=== PATIENT | male | born 1960 | race Two or more races ===

== ENCOUNTER 2022-09-19 07:18 | Outpatient (REF) | payer OTHER, SELFPAY ==
[2022-09-19 07:40] LABS: MANUAL DIFF FLAG NO
[2022-09-19 08:08] LABS: Basophils Percent Auto 0.6 % (0-2); Eosinophils Absolute Auto 0.3 X10*3/uL (0.0-0.4); Eosinophils Percent Auto 3.8 % (0-4); Hematocrit 44.8 % (42.0-52.0); Hemoglobin 15.1 g/dl (14.0-18.0); Imm Gran Abs Auto 0.02 X10*3/uL (0.00-0.03); Imm Gran Pct Auto 0.3 % (0.0-0.4); Lymphocytes Absolute Auto 1.8 X10*3/uL (1.2-4.9); Lymphocytes Percent Auto 24.8 % (20-40); Mean Corpuscular HGB Conc 33.7 g/dl (31.0-36.0); Mean Corpuscular Hemoglobin 29.4 pg (27.0-33.0); Mean Corpuscular Volume 87.3 fL (80.0-98.0); Mean Platelet Volume 10.4 fL (9.4-12.4); Monocytes Absolute Auto 0.5 X10*3/uL (0.1-1.2); Monocytes Percent Auto 7.2 % (2-11); Neutrophils Absolute Auto 4.5 x10*3/uL (2.0-8.3); Neutrophils Percent Auto 63.3 % (45-73); Platelet Count 221 X10*3/uL (160-400); Red Blood Count 5.13 X10*6/uL (4.60-5.80); Red Cell Distribution Width 12.2 % (11.0-16.0); White Blood Count 7.1 X10*3/uL (4.8-10.8)
[2022-09-19 08:43] LABS: Alanine Aminotransferase 23 U/L (0-40); Albumin Level 4.3 g/dL (3.5-5.0); Alkaline Phosphatase 67 U/L (39-117); Anion Gap 14 (12-20); Aspartate Amino Transferase 19 U/L (5-37); Bilirubin Total 1.2 mg/dL (0.0-1.0); Blood Urea Nitrogen 14 mg/dL (9-16); Calcium 9.2 mg/dL (8.4-10.2); Carbon Dioxide 28 mmol/L (22-29); Chloride 106 mmol/L (96-108); Cholesterol 166 mg/dL; Estimated Glomerular Filt Rate > 60; Glucose Fasting 105 mg/dL (60-99); HDL Cholesterol 31 mg/dL; LDL Cholesterol Calculated 90 mg/dl; Potassium 4.5 mmol/L (3.3-5.1); Sodium 143 mmol/L (135-145); Total Protein 6.4 g/dL (6.5-8.0); Triglycerides 226 mg/dL
[2022-09-19 08:49] LABS: PSA,Total (Free>4and<10) 2.94 ng/mL (0.00-4.00)
== END 2022-09-19 07:19 | disposition home or self-care (01) ==
LOC: HO.LAB 07:18
PROVIDERS: PCP Internal Medicine; Visit Provider Internal Medicine
DX: Z00.00 Encounter for general adult medical examination without abnormal findings (principal); Z12.5 Encounter for screening for malignant neoplasm of prostate
CPT/HCPCS: 36415; 80053; 80061; 84153; 85025

== ENCOUNTER 2023-05-22 07:13 | Outpatient (REF) | payer OTHER, SELFPAY ==
[2023-05-22 07:35] LABS: MANUAL DIFF FLAG NO
[2023-05-22 07:40] LABS: Basophils Percent Auto 0.4 % (0-2); Eosinophils Absolute Auto 0.2 X10*3/uL (0.0-0.4); Eosinophils Percent Auto 3.5 % (0-4); Hemoglobin 15.1 g/dl (14.0-18.0); Imm Gran Abs Auto 0.04 X10*3/uL (0.00-0.03); Imm Gran Pct Auto 0.6 % (0.0-0.4); Lymphocytes Absolute Auto 1.6 X10*3/uL (1.2-4.9); Lymphocytes Percent Auto 23.7 % (20-40); Mean Corpuscular HGB Conc 34.3 g/dl (31.0-36.0); Mean Corpuscular Hemoglobin 29.8 pg (27.0-33.0); Mean Platelet Volume 9.9 fL (9.4-12.4); Monocytes Absolute Auto 0.7 X10*3/uL (0.1-1.2); Monocytes Percent Auto 9.7 % (2-11); Neutrophils Absolute Auto 4.3 x10*3/uL (2.0-8.3); Neutrophils Percent Auto 62.1 % (45-73); Platelet Count 228 X10*3/uL (160-400); Red Blood Count 5.06 X10*6/uL (4.60-5.80); Red Cell Distribution Width 12.7 % (11.0-16.0); White Blood Count 6.9 X10*3/uL (4.8-10.8)
[2023-05-22 08:32] LABS: Alanine Aminotransferase 27 U/L (0-40); Albumin Level 4.3 g/dL (3.5-5.0); Alkaline Phosphatase 73 U/L (39-117); Anion Gap 14 (12-20); Aspartate Amino Transferase 21 U/L (5-37); Blood Urea Nitrogen 17 mg/dL (9-16); Calcium 9.5 mg/dL (8.4-10.2); Carbon Dioxide 25 mmol/L (22-29); Chloride 105 mmol/L (96-108); Cholesterol 173 mg/dL (<200); Estimated Glomerular Filt Rate > 60; Glucose Random 95 mg/dL (60-115); HDL Cholesterol 33 mg/dL (>40); LDL Cholesterol Calculated 95 mg/dL (<100); Potassium 4.1 mmol/L (3.3-5.1); Sodium 140 mmol/L (135-145); Triglycerides 225 mg/dL (<150)
[2023-05-22 08:40] LABS: Thyroid Stimulating Hormone 0.85 uIU/mL (0.32-4.0)
[2023-05-22 08:48] LABS: Vitamin B12 354 pg/mL (200-900)
== END 2023-05-22 07:14 | disposition home or self-care (01) ==
LOC: HO.LAB 07:13
PROVIDERS: PCP Internal Medicine; Visit Provider Internal Medicine
DX: R53.83 Other fatigue (principal); E78.00 Pure hypercholesterolemia, unspecified
CPT/HCPCS: 36415; 80053; 80061; 82607; 84443; 85025

== ENCOUNTER 2023-09-22 09:48 | Outpatient (AMB) | payer OTHER, SELFPAY ==
[2023-09-22 09:53] VITALS: BP 140/70; PULSE 68; O2SAT 95; BMI 33.4
--- NOTE | 2023-09-22 09:53 | A.OFFVIS_ITS ---
Intake Vital Signs 09/22/23 09:53 Height 5 ft 8 in Weight 220 lb BMI 33.4 BP 140/70 H Blood Pressure Location Lt brachial Position Sitting Pulse 68 Pulse Source Pulse Oximeter Pulse Oximetry (%) 95 Oxygen Delivery Method Room Air Intake Visit Reasons: Fatigue Intake Note: pt is here for a work up of ANNE-MARIE, he states he is fatigued during the day, sno res, witnessed apneas. family hx of 4 brothers of ANNE-MARIE and on cpap. 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 animal dander Allergy (Unknown, Uncoded 09/22/23 11:59) Difficulty Breathing animal hair (dog) Allergy (Unknown, Uncoded 09/22/23 11:59) Difficulty Breathing Medication List - Last Reconciled 09/22/23 by Dashawn Ghosh MD atorvastatin 10 mg PO BEDTIME Do you need a note to return to daycare/school/sports/work: No HPI Fatigue HPI Details This 63 years old, gentleman, a retired stenographic court reporter, is being seen for the 1st time, because of his difficulty in sleeping at night and excessive daytime sleepiness/fatigue. He has been experiencing these symptoms for the last. 7-10 years He did put on about 10 lb of weight during the past. 5 years He snores heavy at night, wakes up during the night with dry mouth and sometime gasping like feeling. He remains somewhat tired during the whole day, When he wakes up in the morning he does not feel refreshed. He has an urge to fall asleep, if he is just sitting and not physically active. Or if he is watching. TV or reading a book In the afternoon almost on a daily basis he has a deep urge to take a nap. EPWORTH SLEEPINESS SCALE IS 14. FAMILY HISTORY IS INTERESTING. His 4 brothers are diagnosed to have sleep apnea and use CPAP. His 1 nephew , sister,s son also uses CPAP. He has no other significant problems except for borderline hypertension and also hyperlipidemia which is being treated with med. ON LICENSE OF [facility] Medical History (Updated 09/22/23 @ 12:07 by Dashawn Ghosh MD) ANNE-MARIE (obstructive sleep apnea) Habitual snoring Somnolence, daytime Obesity (BMI 30-39.9) Social History Patient Tobacco Use Status: Never used Tobacco Review of Systems Const All systems reviewed & are unremarkable except as noted in HPI and below Reports snoring (Loud and heavy snoring) Eyes Reports no additional complaints ENT Reports no additional complaints Card Denies chest pain, Denies rapid heart rate, Denies irregular heart rhythm and Denies leg edema Resp Denies cough, Denies hemoptysis, Reports snoring (Loud and heavy snoring) and Denies wheezing GI Reports no additional complaints Reports no additional complaints Musc Reports no additional complaints Skin/Breast Reports system reviewed and no additional complaints, except as documented Neuro Reports no additional complaints Psych Reports no additional complaints Endo Reports no additional complaints Guanako/Lymph Reports no additional complaints Aller/Immun Denies wheezing Physical Exam Vital Signs: Last Vital Signs Pulse 68 09/22/23 09:53 BP 140/70 H 09/22/23 09:53 Pulse Ox 95 09/22/23 09:53 Oxygen Delivery Method Room Air 09/22/23 09:53 BMI result Body Mass Index 33.4 Const Other: He does have a round face, there is mild regression of his chin . Oropharynx is narrow and crowded, Mallampati class 4 General: healthy appearing, comfortable, no acute distress, alert and awake Orientation/consciousness: patient oriented x3 HEENT Head: Yes normal to inspection General nose exam: No nasal polyps present and No nasal discharge present Face and sinus: Yes sinuses nontender Mouth: oropharynx abnormals (Tongue is placed back, oropharynx is narrow and crowded, Mallampati class 4) Throat: Yes posterior oropharynx normal Eyes General: appearance normal, both eyes and all related structures Neck Neck: Yes normal visual inspection, Yes no lymphadenopathy, Yes trachea midline, Yes no JVD and Yes other (Neck size 16-1/2 inch) Thyroid: Thyroid normal Chest Chest palpation & inspection: normal inspection of the chest, normal palpation of entire chest wall and no tenderness Resp Effort & Inspection: normal respiratory effort Auscultation: clear to auscultation bilaterally, no crackles and no wheezes Cardio Palpation: normal PMI Rate: regular rate Rhythm: regular rhythm Heart sounds: no gallops and no murmurs Peripheral pulses: Peripheral pulses 2+ throughout GI Palpation (GI): Soft to palpation, nontender, No hepatosplenomegaly present and no masses Auscultation: normal bowel sounds Back/Spine/Pelvis Thoracic/Lumbar Spine: thoracic and lumbar spine normal to inspection Skin General skin exam: no rashes or lesions noted Neuro General: patient oriented x3 and no focal motor deficits Cranial nerves: Yes CN's II-XII intact bilaterally Extrem General: Yes normal to inspection, Yes no clubbing, cyanosis or edema and Yes no calf tenderness Psych Appearance: grossly normal and well kempt Speech and movement: Normal speech and movement present Assessment & Plan Assessment & Plan (1) Obesity (BMI 30-39.9): Code(s): E66.9 - Obesity, unspecified (2) Somnolence, daytime: Code(s): R40.0 - Somnolence (3) Habitual snoring: Code(s): R06.83 - Snoring (4) ANNE-MARIE (obstructive sleep apnea): Code(s): G47.33 - Obstructive sleep apnea (adult) (pediatric) Plan: THIS 63 YEARS OLD OTHERWISE HEALTHY GENTLEMAN WHO IS MODERATELY OBESE WITH A ROUND FACE AND SOMEWHAT REGRESSED DID CHIN. DOES HAVE NARROW OROPHARYNX. HE HAS TYPICAL SYMPTOMS OF OBSTRUCTIVE SLEEP APNEA. INTERESTINGLY THERE IS A FAMILY HISTORY OF SLEEP APNEA. HE HAS SIGNIFICANT DAYTIME SOMNOLENCE WITH EPWORTH SLEEPINESS SCALE 14 . HE DEFINITELY NEEDS A SLEEP STUDY. DISCUSSED WITH HIM AND HE WOULD PREFERRED TO HAVE A SLEEP STUDY AT HOME, WHICH IS BEING ORDERED. HAD A GOOD DISCUSSION ABOUT THE FEATURES OF SLEEP APNEA AND MODES OF TREATMENT. HE IS ENCOURAGED TO LOSE ABOUT 10 LB OF WEIGHT IN THE NEXT FEW MONTHS. SLEEP HYGIENE IS ALSO EXPLAINED. TO BE RECHECKED AFTER THE SLEEP STUDY IS COMPLETED. Plan ABOVE Orders: Orders RT home sleep study Today E66.9 - Obesity, unspecified, G47.33 - Obstructive sleep apnea (adult) (pediatric), R06.83 - Snoring, R40.0 - Somnolence Coding Level of Care Code New Pt Level 4 (44694) Diagnoses Obesity (BMI 30-39.9) E66.9 Somnolence, daytime R40.0 Habitual snoring R06.83 ANNE-MARIE (obstructive sleep apnea) G47.33
== END 2023-09-22 10:21 | disposition home or self-care (01) ==
PROVIDERS: PCP Internal Medicine; Visit Provider Internal Medicine
DX: E66.9 Obesity, unspecified (principal); R40.0 Somnolence; R06.83 Snoring; G47.33 Obstructive sleep apnea (adult) (pediatric)
CPT/HCPCS: 99204

== ENCOUNTER → 2023-09-22 09:48 | Outpatient (BNVA) | payer OTHER, SELFPAY | PROVIDERS: PCP Internal Medicine; Visit Provider Internal Medicine ==

== ENCOUNTER 2023-09-29 07:44 | Outpatient (REF) | payer OTHER, SELFPAY ==
[2023-09-29 07:59] LABS: MANUAL DIFF FLAG NO
[2023-09-29 08:14] LABS: Basophils Percent Auto 0.5 % (0-2); Eosinophils Absolute Auto 0.2 X10*3/uL (0.0-0.4); Eosinophils Percent Auto 2.9 % (0-4); Hematocrit 44.4 % (42.0-52.0); Hemoglobin 15.5 g/dl (14.0-18.0); Imm Gran Abs Auto 0.02 X10*3/uL (0.00-0.03); Imm Gran Pct Auto 0.3 % (0.0-0.4); Lymphocytes Absolute Auto 1.8 X10*3/uL (1.2-4.9); Lymphocytes Percent Auto 27.4 % (20-40); Mean Corpuscular HGB Conc 34.9 g/dl (31.0-36.0); Mean Platelet Volume 10.2 fL (9.4-12.4); Monocytes Absolute Auto 0.5 X10*3/uL (0.1-1.2); Monocytes Percent Auto 8.3 % (2-11); Neutrophils Absolute Auto 3.9 x10*3/uL (2.0-8.3); Neutrophils Percent Auto 60.6 % (45-73); Platelet Count 231 X10*3/uL (160-400); Red Blood Count 5.16 X10*6/uL (4.60-5.80); Red Cell Distribution Width 12.5 % (11.0-16.0); White Blood Count 6.5 X10*3/uL (4.8-10.8)
[2023-09-29 09:08] LABS: Alanine Aminotransferase 25 U/L (0-40); Albumin Level 4.3 g/dL (3.5-5.0); Alkaline Phosphatase 71 U/L (39-117); Anion Gap 11 (12-20); Aspartate Amino Transferase 20 U/L (5-37); Blood Urea Nitrogen 16 mg/dL (9-16); Calcium 9.6 mg/dL (8.4-10.2); Carbon Dioxide 30 mmol/L (22-29); Chloride 103 mmol/L (96-108); Cholesterol 172 mg/dL (<200); Estimated Glomerular Filt Rate > 60; Glucose Fasting 101 mg/dL (60-99); HDL Cholesterol 36 mg/dL (>40); LDL Cholesterol Calculated 78 mg/dL (<100); Potassium 4.2 mmol/L (3.3-5.1); Sodium 140 mmol/L (135-145); Total Protein 6.9 g/dL (6.5-8.0); Triglycerides 294 mg/dL (<150)
[2023-09-29 09:17] LABS: Prostate Specific Antigen Scr 2.47 ng/mL (<0.05-4.0)
== END 2023-09-29 07:45 | disposition home or self-care (01) ==
LOC: HO.LAB 07:44
PROVIDERS: PCP Internal Medicine; Visit Provider Internal Medicine
DX: Z12.5 Encounter for screening for malignant neoplasm of prostate (principal); E78.00 Pure hypercholesterolemia, unspecified
CPT/HCPCS: 36415; 80053; 80061; 84153; 85025

== ENCOUNTER 2023-10-13 10:16 | Day surgery (SDC) | payer MEDICARE, OTHER, SELFPAY ==
[2023-10-11 08:16] VITALS: BMI 33.6
--- NOTE | 2023-10-11 14:41 | HO.ANESPROP2 ---
Documented by User: Bety Nguyen NP 10/11/23 14:41 HPI - Anesthesia Eval Consult details Narrative: 63yo M for Colonoscopy PMFSH Active Problems Active Problems: All Active Problems (Updated 09/22/23 @ 12:07 by Dashawn Ghosh MD) ANNE-MARIE (obstructive sleep apnea) (Acute) Habitual snoring (Acute) Somnolence, daytime (Acute) Obesity (BMI 30-39.9) (Acute) Past Medical History Medical History ANNE-MARIE (obstructive sleep apnea) Habitual snoring Somnolence, daytime Obesity (BMI 30-39.9) Surgical History Surgical History H/O colonoscopy Social History Social History Patient Tobacco Use Status: Never used Tobacco Use of substances other than those prescribed or required for medical reasons: No Are you DNR?: No Advance Directives: No Advance Directives Information Provided: Yes Meds Allergies Allergy/AdvReac Type Severity Reaction Status Date / Time animal dander [ANIMAL HAIR] AdvReac Intermediate SNEEZING, Unverified 09/22/23 11:59 ETC. animal dander Allergy Unknown Difficulty Uncoded 09/22/23 11:59 Breathing animal hair (dog) Allergy Unknown Difficulty Uncoded 09/22/23 11:59 Breathing Home Medications Medication Instructions Recorded Confirmed Last Taken Type atorvastatin 10 mg tablet 10 mg PO BEDTIME 09/22/23 10/11/23 Unknown History Exam Height,Weight and Vital Signs: Height 5 ft 8 in Weight 100.244 kg Pertinent Lab Results Pertinent Lab Results: Laboratory Tests 09/29/23 07:57 WBC 6.5 Hgb 15.5 Hct 44.4 Plt Count 231 Sodium 140 Potassium 4.2 Chloride 103 Carbon Dioxide 30 H BUN 16 Creatinine 0.88 Assessment and Plan Assessment Anesthesia Assessment: Chart Reviewed Documented by User: Jade Shaffer MD 10/13/23 10:49 [facility], [facility] Past Medical History Medical History ANNE-MARIE (obstructive sleep apnea) Habitual snoring Somnolence, daytime Obesity (BMI 30-39.9) Family History Family history of problems with anesthesia: No Surgical History Surgical History H/O colonoscopy History of Problems with Anesthesia: No Social History Social History Patient Tobacco Use Status: Never used Tobacco Use of substances other than those prescribed or required for medical reasons: No Are you DNR?: No Advance Directives: No Advance Directives Information Provided: Yes Meds Allergies Allergy/AdvReac Type Severity Reaction Status Date / Time animal dander [ANIMAL HAIR] AdvReac Intermediate SNEEZING, Unverified 09/22/23 11:59 ETC. animal dander Allergy Unknown Difficulty Uncoded 09/22/23 11:59 Breathing animal hair (dog) Allergy Unknown Difficulty Uncoded 09/22/23 11:59 Breathing Home Medications Medication Instructions Recorded Confirmed Last Taken Type atorvastatin 10 mg tablet 10 mg PO BEDTIME 09/22/23 10/11/23 Unknown History Exam Airway Mallampati Class: III (multiple caps laterally) TM Dist: >3cm Neck ROM: Full Heart: rrr Lungs: cta Assessment and Plan Assessment Anesthesia Assessment: Anesthesia Plan Discussed Final Anesthetic Review Family History of Problems with Anesthesia: No History of Problems with Anesthesia: No NPO: Yes ASA Class: II Final Preanesthetic Review: No Changes in Pt Med Stat, Meds/Allgs Chart Reviewed and Consent Obtained/Reviewed Patient Risk: Intermediate Procedure Risk: Intermediate Anesthetic Plan Anesthetic Plan: MAC: Disposition: Standard PACU
[2023-10-13 10:32] VITALS: BMI 33.5
[2023-10-13 10:51] VITALS: BP 147/85; PULSE 66; RESP 16; TEMP 36.7; O2SAT 94
[2023-10-13] MEDS: Lactated Ringers 1,000 ML 100 ML IVCONT (10:59)
[2023-10-13 12:09] VITALS: BP 128/73; PULSE 59; RESP 16; TEMP 36.2; O2SAT 94
--- NOTE | 2023-10-13 12:15 | PM.OP ---
Brief Operative Note Date of Service: 10/13/23 Pre-op diagnosis: Screening Post-op diagnosis: other (Polyp) Procedure: Colonoscopy to the cecum with hot snare polypectomy x 1(specimen not recovered) Surgeon: Jarrod Hernandez MD Anesthesia: MAC Was an Manager Regional Sales used for this Procedure?: No Estimated blood loss (mL): 0 Pathology: none sent Condition: stable Disposition: PACU
[2023-10-13 12:24] VITALS: BP 142/75; PULSE 54; RESP 16; TEMP 36.2; O2SAT 96
--- NOTE | 2023-10-13 12:41 | OP_ITS ---
DATE OF SERVICE: 10/13/2023 SURGEON: Jarrod Hernandez MD INDICATIONS: The patient presents for evaluation of colorectal cancer screening and personal history of colon polyps. Full consent was obtained from him for this, including risks of bleeding and perforation. PREOPERATIVE DIAGNOSIS: POSTOPERATIVE DIAGNOSIS: PROCEDURE PERFORMED: Colonoscopy to the cecum with hot snare polypectomy. ESTIMATED BLOOD LOSS: COMPLICATIONS: ANESTHESIA: Monitored anesthesia care. ASSISTANTS: SPECIMENS: PREOPERATIVE DIAGNOSES: Colorectal cancer screening and personal history of colon polyps. POSTOPERATIVE DIAGNOSES: Colorectal cancer screening, personal history of colon polyps, colon polyp, diverticulosis, and internal hemorrhoids. DESCRIPTION OF PROCEDURE: The patient was placed in the left lateral decubitus position. The digital rectal exam revealed no abnormalities. The Olympus video pediatric colonoscope was then entered into the rectum and advanced to the cecum with the assistance of abdominal wall pressure. Once in the cecum, I did identify normal-appearing cecal pouch with appendiceal orifice and a normal-appearing ileocecal valve. There was transillumination of light deep in the right lower quadrant. The entire cecum and ileocecal valve appeared normal. The scope was slowly withdrawn, assessing all mucosal surfaces carefully. Preparation was excellent. At 50 cm, there was a flat, approximately 8 mm polyp, which was removed by hot snare polypectomy, but not recovered. The polypectomy site appeared clean, without any sign of residual polyp nor bleeding. I did not visualize any other polyps, colitis, nor angiodysplasia. There was a mild amount of sigmoid diverticulosis. In the rectum, the scope was retroflexed visualizing internal hemorrhoids, but no other pathology. The rectal mucosa appeared normal. The scope was straightened out and withdrawn from the patient. He tolerated the procedure well and was returned to the recovery area in stable condition. IMPRESSION: 1. Colon polyp. 2. Diverticulosis. 3. Internal hemorrhoids. PLAN: I would recommend a repeat colonoscopy in 5 years. He was advised not to use any aspirin or NSAIDs for 1 week. MD TAE Felder/MARIE / [phone]
== END 2023-10-13 13:01 | disposition home or self-care (01) ==
PROVIDERS: PCP Internal Medicine; Visit Provider Internal Medicine
PROC: 0DJD8ZZ Inspection of Lower Intestinal Tract, Via Natural or Artificial Opening Endoscopic (ICD-10-PCS; CPT 45378; principal; 2023-10-13 11:50)
DX: Z12.11 Encounter for screening for malignant neoplasm of colon (principal); K63.5 Polyp of colon; K57.30 Diverticulosis of large intestine without perforation or abscess without bleeding; K64.8 Other hemorrhoids; Z86.010 Personal history of colon polyps; E78.5 Hyperlipidemia, unspecified
CPT/HCPCS: 45385; J2704

== ENCOUNTER → 2023-11-01 08:58 | Outpatient (REF) | payer MEDICARE, OTHER, SELFPAY | LOC: HO.SL 08:58 | PROVIDERS: PCP Internal Medicine; Visit Provider Internal Medicine | DX: G47.33 Obstructive sleep apnea (adult) (pediatric) (principal); E66.9 Obesity, unspecified; R40.0 Somnolence; R06.83 Snoring | CPT/HCPCS: 95806 ==

== ENCOUNTER → 2023-11-01 09:11 | Outpatient (BNV) | payer MEDICARE, OTHER, SELFPAY | PROVIDERS: PCP Internal Medicine; Visit Provider Internal Medicine | DX: G47.33 Obstructive sleep apnea (adult) (pediatric) (principal) | CPT/HCPCS: 95806 ==

== ENCOUNTER 2023-11-23 09:54 | Outpatient (AMB) | payer MEDICARE, OTHER, SELFPAY ==
[2023-11-23 09:59] VITALS: BP 130/80; PULSE 61; O2SAT 94; BMI 33.4
--- NOTE | 2023-11-23 09:59 | A.OFFVIS_ITS ---
Vital Signs 11/23/23 09:59 Height 5 ft 8 in Weight 220 lb BMI 33.4 BP 130/80 Pulse 61 Pulse Source Pulse Oximeter Pulse Oximetry (%) 94 Oxygen Delivery Method Room Air Intake Visit Reasons: Fatigue Intake Note: pt is here for follow up of sleep study and he feels great. 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 animal dander Allergy (Unknown, Uncoded 11/23/23 10:16) Difficulty Breathing animal hair (dog) Allergy (Unknown, Uncoded 11/23/23 10:16) Difficulty Breathing Medication List - Last Reconciled 11/23/23 by Dashawn Ghosh MD atorvastatin 10 mg PO BEDTIME Do you need a note to return to daycare/school/sports/work: No HPI HPI Fatigue: Details: DA COMES FOR FOLLOW-UP AFTER THE HOME-BASED SLEEP STUDY. HE CONTINUES TO HAVE SOMEWHAT FRAGMENTED AND LIGHT SLEEP, THOUGH HE SLEEPS ALMOST 8 HOURS. REMAINS TIRED DURING THE DAYTIME, BUT NOT OVERLY SLEEPY. HIS BROTHER HAS SLEEP APNEA AND USES CPAP. SO DA IS WELL WORST WITH THE CPAP. HIS BROTHER HER SAYS TOLD HIM THAT HIS SLEEP IS 100% BETTER ONCE HE STARTED USING THE CPAP. [facility] Medical History ANNE-MARIE (obstructive sleep apnea) Habitual snoring Somnolence, daytime Obesity (BMI 30-39.9) Surgical History H/O colonoscopy Social History Patient Tobacco Use Status: Never used Tobacco Review of Systems Const All systems reviewed & are unremarkable except as noted in HPI and below Reports snoring (Loud and heavy snoring) Eyes Reports no additional complaints ENT Reports no additional complaints Card Denies chest pain, Denies rapid heart rate, Denies irregular heart rhythm and Denies leg edema Resp Denies cough, Denies hemoptysis, Reports snoring (Loud and heavy snoring) and Denies wheezing GI Reports no additional complaints Reports no additional complaints Musc Reports no additional complaints Skin/Breast Reports system reviewed and no additional complaints, except as documented Neuro Reports no additional complaints Psych Reports no additional complaints Endo Reports no additional complaints Guanako/Lymph Reports no additional complaints Aller/Immun Denies wheezing Physical Exam Vital Signs: Last Vital Signs Pulse 61 11/23/23 09:59 BP 130/80 11/23/23 09:59 Pulse Ox 94 11/23/23 09:59 Oxygen Delivery Method Room Air 11/23/23 09:59 BMI result Body Mass Index 33.4 Const Other: He does have a round face, there is mild regression of his chin . Oropharynx is narrow and crowded, Mallampati class 4 General: healthy appearing, comfortable, no acute distress, alert and awake Orientation/consciousness: patient oriented x3 HEENT Head: Yes normal to inspection General nose exam: No nasal polyps present and No nasal discharge present Face and sinus: Yes sinuses nontender Mouth: oropharynx abnormals (Tongue is placed back, oropharynx is narrow and crowded, Mallampati class 4) Throat: Yes posterior oropharynx normal Eyes General: appearance normal, both eyes and all related structures Neck Neck: Yes normal visual inspection, Yes no lymphadenopathy, Yes trachea midline, Yes no JVD and Yes other (Neck size 16-1/2 inch) Thyroid: Thyroid normal Chest Chest palpation & inspection: normal inspection of the chest, normal palpation of entire chest wall and no tenderness Resp Effort & Inspection: normal respiratory effort Auscultation: clear to auscultation bilaterally, no crackles and no wheezes Cardio Palpation: normal PMI Rate: regular rate Rhythm: regular rhythm Heart sounds: no gallops and no murmurs Peripheral pulses: Peripheral pulses 2+ throughout GI Palpation (GI): Soft to palpation, nontender, No hepatosplenomegaly present and no masses Auscultation: normal bowel sounds Back/Spine/Pelvis Thoracic/Lumbar Spine: thoracic and lumbar spine normal to inspection Skin General skin exam: no rashes or lesions noted Neuro General: patient oriented x3 and no focal motor deficits Cranial nerves: Yes CN's II-XII intact bilaterally Extrem General: Yes normal to inspection, Yes no clubbing, cyanosis or edema and Yes no calf tenderness Psych Appearance: grossly normal and well kempt Speech and movement: Normal speech and movement present Results Reviewed Results Reviewed: HOME-BASED SLEEP STUDY ON 11/01/2023 THE SLEEP WAS ONLY FOR 75 MINUTES, HOWEVER THERE IS ENOUGH EVIDENCE FOR MODERATELY SEVERE OBSTRUCTIVE SLEEP APNEA WITH TOTAL SLEEP TIME AHI 18 AND SNORING FOR 20% OF THE SLEEP TIME Assessment & Plan Assessment & Plan (1) ANNE-MARIE (obstructive sleep apnea): Comment: HE HAS MODERATELY SEVERE SLEEP APNEA WITH TOTAL SLEEP TIME AHI 18.6 AND SNORING FOR 20% OF SLEEP TIME. Code(s): G47.33 - Obstructive sleep apnea (adult) (pediatric) Category: Medical Plan: HAD A GOOD DISCUSSION, . AND EDUCATIONAL SESSION HE UNDERSTANDS ABOUT THE SLEEP APNEA AND USE OF CPAP. HE IS ACTUALLY LOOKING FORWARD TO USING CPAP CPAP WITH AUTO PAP MODE AND PRESSURE SETTING 6-20 CM USING NASAL MASK IS BEING ORDERED. WILL BE RECHECKED IN 2 MONTHS, TO GO OVER HIS. COMPLIANCE AND BENEFITS AGAIN INSTRUCTED THAT HE SHOULD LOSE SOME WEIGHT . (2) Obesity (BMI 30-39.9): Comment: HE IS MODERATELY OBESE , PREDOMINANTLY ABDOMINAL OBESITY. Code(s): E66.9 - Obesity, unspecified Category: Medical Plan: DISCUSSED ABOUT NEED TO LOSE WEIGHT, AT LEAST 20-22 LB IN THE NEXT FEW MONTHS.
== END 2023-11-23 10:28 | disposition home or self-care (01) ==
PROVIDERS: PCP Internal Medicine; Visit Provider Internal Medicine
DX: G47.33 Obstructive sleep apnea (adult) (pediatric) (principal); E66.9 Obesity, unspecified
CPT/HCPCS: 99213

== ENCOUNTER → 2023-11-23 09:54 | Outpatient (BNVA) | payer OTHER, SELFPAY | PROVIDERS: PCP Internal Medicine; Visit Provider Internal Medicine ==

== ENCOUNTER 2024-01-26 10:13 | Outpatient (AMB) | payer MEDICARE, OTHER, SELFPAY ==
[2024-01-26 10:24] VITALS: BP 130/70; PULSE 58; O2SAT 98; BMI 33.0
--- NOTE | 2024-01-26 10:24 | A.OFFVIS_ITS ---
Vital Signs 01/26/24 10:24 Height 5 ft 8 in Weight 217 lb BMI 33.0 BP 130/70 Blood Pressure Location Lt brachial Position Sitting Pulse 58 Pulse Source Pulse Oximeter Pulse Oximetry (%) 98 Oxygen Delivery Method Room Air Intake Visit Reasons: Fatigue Intake Note: pt is here for follow up of ANNE-MARIE and start of cpap Spreader Required: No Allergies animal dander [ANIMAL HAIR] Adverse Reaction (Intermediate, Verified 01/26/24 10:44) SNEEZING, ETC. animal dander Allergy (Unknown, Uncoded 01/26/24 10:44) Difficulty Breathing animal hair (dog) Allergy (Unknown, Uncoded 01/26/24 10:44) Difficulty Breathing Medication List - Last Reconciled 01/26/24 by Dashawn Ghosh MD atorvastatin 10 mg PO BEDTIME Do you need a note to return to daycare/school/sports/work: No HPI HPI Fatigue: Details: MIROSLAVA IS 63 YEARS OLD VERY PLEASANT GENTLEMAN WHO IS MODERATELY OBESE AND HAS DIAGNOSIS OF OBSTRUCTIVE SLEEP APNEA. HE IS USING HIS CPAP VERY REGULARLY EVERY NIGHT, AND SLEEPS GOOD. HE HAS NO COMPLAINT RELATED TO THE CPAP MASK OR THE MACHINE. WAKES UP REFRESHED IN THE MORNING, REMAINS PHYSICALLY ACTIVE DURING THE DAY, DOES NOT HAVE YAWNING OR SLEEPINESS ANYMORE. COUNT INCLUDES THE [facility] Medical History ANNE-MARIE (obstructive sleep apnea) Habitual snoring Somnolence, daytime Obesity (BMI 30-39.9) Surgical History H/O colonoscopy Social History Patient Tobacco Use Status: Never used Tobacco Review of Systems Const All systems reviewed & are unremarkable except as noted in HPI and below Reports snoring (Loud and heavy snoring) Eyes Reports no additional complaints ENT Reports no additional complaints Card Denies chest pain, Denies rapid heart rate, Denies irregular heart rhythm and Denies leg edema Resp Denies cough, Denies hemoptysis, Reports snoring (Loud and heavy snoring) and Denies wheezing GI Reports no additional complaints Reports no additional complaints Musc Reports no additional complaints Skin/Breast Reports system reviewed and no additional complaints, except as documented Neuro Reports no additional complaints Psych Reports no additional complaints Endo Reports no additional complaints Guanako/Lymph Reports no additional complaints Aller/Immun Denies wheezing Physical Exam Vital Signs: Last Vital Signs Pulse 58 01/26/24 10:24 BP 130/70 01/26/24 10:24 Pulse Ox 98 01/26/24 10:24 Oxygen Delivery Method Room Air 01/26/24 10:24 BMI result Body Mass Index 33.0 Const Other: He does have a round face, there is mild regression of his chin . Oropharynx is narrow and crowded, Mallampati class 4 General: healthy appearing, comfortable, no acute distress, alert and awake Orientation/consciousness: patient oriented x3 HEENT Head: Yes normal to inspection General nose exam: No nasal polyps present and No nasal discharge present Face and sinus: Yes sinuses nontender Mouth: oropharynx abnormals (Tongue is placed back, oropharynx is narrow and crowded, Mallampati class 4) Throat: Yes posterior oropharynx normal Eyes General: appearance normal, both eyes and all related structures Neck Neck: Yes normal visual inspection, Yes no lymphadenopathy, Yes trachea midline, Yes no JVD and Yes other (Neck size 16-1/2 inch) Thyroid: Thyroid normal Chest Chest palpation & inspection: normal inspection of the chest, normal palpation of entire chest wall and no tenderness Resp Effort & Inspection: normal respiratory effort Auscultation: clear to auscultation bilaterally, no crackles and no wheezes Cardio Palpation: normal PMI Rate: regular rate Rhythm: regular rhythm Heart sounds: no gallops and no murmurs Peripheral pulses: Peripheral pulses 2+ throughout GI Palpation (GI): Soft to palpation, nontender, No hepatosplenomegaly present and no masses Auscultation: normal bowel sounds Back/Spine/Pelvis Thoracic/Lumbar Spine: thoracic and lumbar spine normal to inspection Skin General skin exam: no rashes or lesions noted Neuro General: patient oriented x3 and no focal motor deficits Cranial nerves: Yes CN's II-XII intact bilaterally Extrem General: Yes normal to inspection, Yes no clubbing, cyanosis or edema and Yes no calf tenderness Psych Appearance: grossly normal and well kempt Speech and movement: Normal speech and movement present Results Reviewed Results Reviewed: COMPLIANCE REPORT FOR THE LAST 30 NIGHTS IS REVIEWED. HE HAS USED EVERY NIGHT EXCEPT FOR 3 NIGHTS WHEN HE WAS OUT OF TOWN. AVERAGE USE IT PER NIGHT 8 HOURS 42 MINUTES. PRESSURE USED MOSTLY. 12-14 CM NO SIGNIFICANT AIR LEAK. RESIDUAL AHI 2.6 Assessment & Plan Assessment & Plan (1) Obesity (BMI 30-39.9): Comment: HE IS MODERATELY OBESE , PREDOMINANTLY ABDOMINAL OBESITY. Code(s): E66.9 - Obesity, unspecified Category: Medical Plan: ADVISE THAT HE SHOULD CONTINUE TO TRY LOSING SOME WEIGHT. WALK DAILY OR DO SOME REGULAR EXERCISE. (2) ANNE-MARIE (obstructive sleep apnea): Comment: HE HAS MODERATELY SEVERE SLEEP APNEA WITH TOTAL SLEEP TIME AHI 18.6 AND SNORING FOR 20% OF SLEEP TIME. PATIENT HAS BEEN STARTED ON CPAP THERAPY AND HE IS USING IT VERY REGULARLY. HE REPORTS SIGNIFICANT IMPROVEMENT IN HIS SLEEP, AND NO MORE SNORING. COMPLIANCE IS GOOD. Code(s): G47.33 - Obstructive sleep apnea (adult) (pediatric) Category: Medical Plan: CONTINUE USING CPAP EVERY NIGHT, WITH FULLFACE MASK AND PRESSURE SETTING OF 6-20 CM. .WILL BE RECHECKED EVERY 6 MONTHS Coding Level of Care Code Est Pt Level 3 (30695) Diagnoses Obesity (BMI 30-39.9) E66.9 ANNE-MARIE (obstructive sleep apnea) G47.33
== END 2024-01-26 10:45 | disposition home or self-care (01) ==
PROVIDERS: PCP Internal Medicine; Visit Provider Internal Medicine
DX: E66.9 Obesity, unspecified (principal); G47.33 Obstructive sleep apnea (adult) (pediatric)
CPT/HCPCS: 99213

== ENCOUNTER → 2024-01-26 10:13 | Outpatient (BNVA) | payer OTHER, SELFPAY | PROVIDERS: PCP Internal Medicine; Visit Provider Internal Medicine ==

== ENCOUNTER 2024-03-30 07:06 | Outpatient (REF) | payer MEDICARE, OTHER, SELFPAY ==
[2024-03-30 08:29] LABS: Cholesterol 167 mg/dL (<200); HDL Cholesterol 36 mg/dL (>40); LDL Cholesterol Calculated 92 mg/dL (<100); Triglycerides 196 mg/dL (<150)
== END 2024-03-30 07:07 | disposition home or self-care (01) ==
LOC: HO.LAB 07:06
PROVIDERS: PCP Internal Medicine; Visit Provider Internal Medicine
DX: E78.5 Hyperlipidemia, unspecified (principal)
CPT/HCPCS: 36415; 80061

== ENCOUNTER 2024-07-17 10:15 | Outpatient (AMB) | payer OTHER, SELFPAY ==
--- OUTSIDE RECORDS SUMMARY | 2024-07-17 10:19 | XMS_ITS ---
Author Organization [facility] Address [address] [place] [address] Care Team Providers Care Metal Cnc Operator Name Role Phone Topher Bustos MD Primary Care Provider UnavailJarrod Goetz Unavailable [phone] REASON FOR VISIT Patient presents today for a COLON SCREENING Encounters Encounter Location Date Provider Diagnosis [facility] [address] [place] [address] 02/24/2023 Jarrod Hernandez PLAN OF TREATMENT No Information
--- OUTSIDE RECORDS SUMMARY | 2024-07-17 10:19 | XMS_ITS ---
Author Organization [facility] Address [address] [place] [address] Care Team Providers Care Receiving Inspector Name Role Phone Topher Bustos MD Primary Care Provider Jarrod Serna Unavailable [phone] ALLERGIES Allergen (clinical drug ingredient) Drug/Non Drug Allergy documented on EMR Reaction Allergy Type Onset Date Status animal hair (uncoded) Unknown Allergy Active REASON FOR VISIT Patient presents today for a discuss colonoscopy MEDICATIONS Medication SIG (Take, Route, Frequency, Duration) Notes Start Date End Date Status Atorvastatin Calcium 10 MG Oral for 30 Active IMMUNIZATIONS Vaccine Route Administration Date Status Comme nts Influenza Unknown 07/14/2023 Refused SOCIAL HISTORY Tobacco Use: Social History Observation Description Date Details (start date - stop date) Never Smoker NA - NA Sex Assigned At : Social History Observation Description Sex Assigned At Unknown Tobacco Use/Smoking Question Answer Notes Patient is a nonsmoker Alcohol Screen Question Answer Notes Did you have a drink contain ing alcohol in the past year? Yes How often did you have a dri nk containing alcohol in the past year? 2 to 4 times a month (2 points) How many drinks did you have on a typical day when you were drinking in the past year? 5 or 6 drinks (2 points) How often did you have 6 or more drinks on one occasion in the past year? Less than monthly (1 point) Points 5 Interpretation Positive PROBLEMS Problem Type ICD Code Onset Dates Problem Status W/U Status Risk SNOMED Code Notes Problem History of colon polyps (Z86.010) Active confirmed 321804610 Problem Colon cancer screening (Z12.11) Active confirmed 162240487 Problem Preprocedural examination (Z01.818) Active confirmed 419278597330359 VITAL SIGNS BMI 33.60 kg/m2 07/14/2023 Blood pressure systolic 000 mm Hg 07/14/20 23 Blood pressure diastolic 00 mm Hg 023 Height 5 ft 8 in in 07/14/2023 Temperature 97.5 degrees Fahrenheit 07/14/20 23 Weight 221 lbs 07/14/2023 Encounters Encounter Location Date Provider Diagnosis [facility] [address] [place] [address] 07/14/2023 Jarrod Hernandez History of colon barbara yps Z86.010 ; Preprocedural examination Z01.818 and Colon cancer screening Z12.11 ASSESSMENTS Encounter Date Diagnosis Assessment Notes Treatment Notes Treatment Clinical Notes 07/14/2023 History of colon polyps (ICD-10 - Z86.010) 07/14/2023 Preprocedural examination (ICD-10 - Z01.818) 07/14/2023 Colon cancer screening (ICD-10 - Z12.11) PLAN OF TREATMENT Future Test Test Name Order Date COLONOSCOPY 07/14/2023 Next Appt Details Follow Up: prn, Reason: Progress Notes * Examination Category Sub-Category Detail Notes General Examination GENERAL APPEARANCE: pleasant , well nourished, well developed, in no acute distress HEAD: EYES: sclera non-icteric EARS: NOSE: THROAT: NECK/THYROID: no cervical lymphade nopathy, neck supple HEART: S1, S2 normal CHEST: LUNGS: clear to auscultatio n bilaterally ABDOMEN: normal bowel sounds, no guarding or rigidity, no guarding or rigidity, no masses palpable, soft, nontender, nondistended NEUROLOGIC: alert and oriented SKIN: nonjaundiced, no spi linn angiomata EXTREMITIES: no edema PERIPHERAL PULSES: BACK: BREASTS: MUSCULOSKELETAL: MALE GENITOURINARY: LYMPH NODES: RECTAL EXAM: FEMALE GENITOURINARY: ORAL CAVITY: mucosa moist
--- OUTSIDE RECORDS SUMMARY | 2024-07-17 10:19 | XMS_ITS ---
Author Organization [facility] Address [address] [place] [address] Care Team Providers Care Scouts Name Role Phone Topher Bustos MD Primary Care Provider Unavaila Jarrod Kimbrough Unavailable [phone] REASON FOR VISIT screening,hx polyps PROBLEMS Problem Type ICD Code Onset Dates Problem Status W/U Status Risk SNOMED Code Notes Problem Diverticulosis of large intestine without perforation or abscess without bleeding (K57.30) Active confirmed Diverticul ar disease of colon (319804804) Encounters Encounter Location Date Provider Diagnosis [facility] [address] [address] [place] [place], [place] [id number] 10/13/2023 Jarrod Hernandez Encounter for scre ening colonoscopy Z12.11 ; Colon polyps K63.5 ; Diverticulosis of large intestine without perforation or abscess without bleeding K57.30 and Other hemorrhoids K64.8 ASSESSMENTS Encounter Date Diagnosis Assessment Notes Treatment Notes Treatment Clinical Notes 10/13/2023 Encounter for screening colonoscopy (ICD-10 - Z12.11) 10/13/2023 Colon polyps (ICD-10 - K63.5) 10/13/2023 Diverticulosis of large intestine without perforation or abscess without bleeding (ICD-10 - K57.30) 10/13/2023 Other hemorrhoids (ICD-10 - K64.8) PLAN OF TREATMENT No Information
--- OUTSIDE RECORDS SUMMARY | 2024-07-17 10:20 | XMS_ITS | Patient Health Record ---
Author Organization [facility] Address [address] [place] [address] Care Team Providers Care Mill Oiler Name Role Phone Topher Bustos MD Primary Care Provider Jarrod Serna Unavailable [phone] ALLERGIES Allergen (clinical drug ingredient) Drug/Non Drug Allergy documented on EMR Reaction Allergy Type Onset Date Status animal hair (uncoded) Unknown Allergy Active REASON FOR REFERRAL No Information MEDICATIONS Medication SIG (Take, Route, Frequency, Duration) [...] History of colon polyps (Z86.010) Active confirmed 113160595 Problem Colon cancer screening (Z12.11) Active confirmed 437698684 Problem Preprocedural examination (Z01.818) Active confirmed 999896423043285 Problem Diverticulosis of large intestine without perforation or abscess without bleeding (K57.30) Active confirmed Diverticul ar disease of colon (089014670) Encounters Encounter Location Date Provider Diagnosis [facility] [place] [facility] [address] [place], [place] [phone] 10/13/2023 Jarrod Hernandez Encounter for scre ening [...] hemorrhoids (ICD-10 - K64.8) PLAN OF TREATMENT Future Test Test Name Order Date COLONOSCOPY 07/14/2023 Insurance Providers Payer Name Payer Address Payer Phone Subscriber Number Group Number Insured Name Patient Relationship to Insured Coverage Start Date Coverage End Date MEDICARE OF [place] [address] [place] [address] [id number] DA MCDONALD Self - patient is the insured [facility] [address] [place] [address] [id number] DA MCDONALD Self - patient is the insured MEDICAL (GENERAL) HISTORY Medical History History ICD Code Denies MD,DM,CVA,Lung disease,renal dise ase Hyperlipidemia 2 previous colonoscopies, mo st recently as of 2016--the 2nd had a polyp removed-Dr. Louie Surgical History Surgery Date(Month/Year)
[2024-07-17 10:23] VITALS: BP 120/62; PULSE 53; O2SAT 95; BMI 33.3
--- NOTE | 2024-07-17 10:23 | A.OFFVIS_ITS ---
Vital Signs 07/17/24 10:23 Height 5 ft 8 in Weight 219 lb 5.759 oz BMI 33.3 BP 120/62 Blood Pressure Location Lt brachial Position Sitting Pulse 53 Pulse Source Pulse Oximeter Pulse Oximetry (%) 95 Oxygen Delivery Method Room Air Intake Visit Reasons: Fatigue Intake Note: pt is here for follow up and states his breathing is okay, and cpap is going, past few days the seal has been difficult. Vp Rheumatology Required: No Allergies animal dander [ANIMAL HAIR] Adverse Reaction (Intermediate, Verified 07/17/24 10:53) SNEEZING, ETC. animal dander Allergy (Unknown, Uncoded 07/17/24 10:53) Difficulty Breathing animal hair (dog) Allergy (Unknown, Uncoded 07/17/24 10:53) Difficulty Breathing Medication List - Last Reconciled 07/17/24 by Dashawn Ghosh MD atorvastatin 10 mg PO BEDTIME Do you need a note to return to daycare/school/sports/work: No HPI HPI Fatigue: Details: 64 years old gentleman, now retired, but still doing a few part-time jobs, Comes for follow-up for his obstructive sleep apnea and use of CPAP. He uses CPAP very regularly every night except missed only 2 nights when he was away from the house. He has no issue with the use of CPAP, has fullface mask and there was slight air leak noticed a few days ago. Wakes up refreshed and remains alert and active during the daytime. Weight has not changed much. [facility] Medical History ANNE-MARIE (obstructive sleep apnea) Habitual snoring Somnolence, daytime Obesity (BMI 30-39.9) Surgical History H/O colonoscopy Social History Patient Tobacco Use Status: Never used Tobacco Review of Systems Const All systems reviewed & are unremarkable except as noted in HPI and below Reports snoring (Loud and heavy snoring) Eyes Reports no additional complaints ENT Reports no additional complaints Card Denies chest pain, Denies rapid heart rate, Denies irregular heart rhythm and Denies leg edema Resp Denies cough, Denies hemoptysis, Reports snoring (Loud and heavy snoring) and Denies wheezing GI Reports no additional complaints Reports no additional complaints Musc Reports no additional complaints Skin/Breast Reports system reviewed and no additional complaints, except as documented Neuro Reports no additional complaints Psych Reports no additional complaints Endo Reports no additional complaints Guanako/Lymph Reports no additional complaints Aller/Immun Denies wheezing Physical Exam Vital Signs: Last Vital Signs Pulse 53 07/17/24 10:23 BP 120/62 07/17/24 10:23 Pulse Ox 95 07/17/24 10:23 Oxygen Delivery Method Room Air 07/17/24 10:23 BMI result Body Mass Index 33.3 Const Other: He does have a round face, there is mild regression of his chin . Oropharynx is narrow and crowded, Mallampati class 4 General: healthy appearing, comfortable, no acute distress, alert and awake Orientation/consciousness: patient oriented x3 HEENT Head: Yes normal to inspection General nose exam: No nasal polyps present and No nasal discharge present Face and sinus: Yes sinuses nontender Mouth: oropharynx abnormals (Tongue is placed back, oropharynx is narrow and crowded, Mallampati class 4) Throat: Yes posterior oropharynx normal Eyes General: appearance normal, both eyes and all related structures Neck Neck: Yes normal visual inspection, Yes no lymphadenopathy, Yes trachea midline, Yes no JVD and Yes other (Neck size 16-1/2 inch) Thyroid: Thyroid normal Chest Chest palpation & inspection: normal inspection of the chest, normal palpation of entire chest wall and no tenderness Resp Effort & Inspection: normal respiratory effort Auscultation: clear to auscultation bilaterally, no crackles and no wheezes Cardio Palpation: normal PMI Rate: regular rate Rhythm: regular rhythm Heart sounds: no gallops and no murmurs Peripheral pulses: Peripheral pulses 2+ throughout GI Palpation (GI): Soft to palpation, nontender, No hepatosplenomegaly present and no masses Auscultation: normal bowel sounds Back/Spine/Pelvis Thoracic/Lumbar Spine: thoracic and lumbar spine normal to inspection Skin General skin exam: no rashes or lesions noted Neuro General: patient oriented x3 and no focal motor deficits Cranial nerves: Yes CN's II-XII intact bilaterally Extrem General: Yes normal to inspection, Yes no clubbing, cyanosis or edema and Yes no calf tenderness Psych Appearance: grossly normal and well kempt Speech and movement: Normal speech and movement present Results Reviewed Results Reviewed: Compliance report for the last 30 nights is reviewed. He has used 28/30 nights, 93%. Average use it per night 8 hours 4 minutes. Pressure used mostly 9-15 cm. There is no significant air leak. Residual AHI 2.3 Assessment & Plan Assessment & Plan (1) Obesity (BMI 30-39.9): Comment: HE IS MODERATELY OBESE , PREDOMINANTLY ABDOMINAL OBESITY. Code(s): E66.9 - Obesity, unspecified Category: Medical Plan: Discussed about the weight and advised to watch his diet, cut down intake of carbohydrates. Try to walk at least 2 miles every day. (2) ANNE-MARIE (obstructive sleep apnea): Comment: HE HAS MODERATELY SEVERE SLEEP APNEA WITH TOTAL SLEEP TIME AHI 18.6 AND SNORING FOR 20% OF SLEEP TIME. PATIENT HAS BEEN ON CPAP THERAPY AND HE IS USING IT VERY REGULARLY. HE REPORTS SIGNIFICANT IMPROVEMENT IN HIS SLEEP, AND HAS NO MORE SNORING. COMPLIANCE IS GOOD. Code(s): G47.33 - Obstructive sleep apnea (adult) (pediatric) Category: Medical Plan: COMMENDED FOR GOOD COMPLIANCE AND ADVISED TO KEEP ON USING CPAP REGULARLY EVERY NIGHT. WILL RECHECK EVERY 6 MONTHS. Coding Level of Care Code Est Pt Level 3 (34440) Diagnoses Obesity (BMI 30-39.9) E66.9 ANNE-MARIE (obstructive sleep apnea) G47.33
== END 2024-07-17 10:53 | disposition home or self-care (01) ==
PROVIDERS: PCP Internal Medicine; Visit Provider Internal Medicine
DX: E66.9 Obesity, unspecified (principal); G47.33 Obstructive sleep apnea (adult) (pediatric)
CPT/HCPCS: 99213

== ENCOUNTER 2025-01-15 09:50 | Outpatient (AMB) | payer OTHER, SELFPAY ==
--- NOTE | 2025-01-15 09:58 | A.OFFVIS_ITS ---
Vital Signs 01/15/25 10:04 Height 5 ft 8 in Weight 221 lb 9.033 oz BMI 33.7 BP 120/70 Blood Pressure Location Lt brachial Position Sitting Pulse 63 Pulse Source Pulse Oximeter Pulse Oximetry (%) 95 Oxygen Delivery Method Room Air Intake Visit Reasons: Fatigue Intake Note: pt is here for follow up and states he is fatigued today due to being around dogs yesterday, using cap Outpatient Admitting Clerk Required: No Allergies animal dander [ANIMAL HAIR] Adverse Reaction (Intermediate, Verified 01/15/25 10:06) SNEEZING, ETC. animal dander Allergy (Unknown, Uncoded 01/15/25 10:06) Difficulty Breathing animal hair (dog) Allergy (Unknown, Uncoded 01/15/25 10:06) Difficulty Breathing Medication List - Last Reconciled 01/15/25 by Dashawn Ghosh MD atorvastatin 10 mg PO BEDTIME Do you need a note to return to daycare/school/sports/work: No HPI HPI Fatigue: Details: This 64 years old very pleasant gentleman is here for follow-up of his sleep apnea. He uses CPAP very regularly every night between 8-9 hours per night, and he sleeps well. He has no issue with the CPAP device are the mask. He also has history of allergy to animal here and dander, especially the dogs, and he tries to stay away from then. Sometimes has to use OTC antihistaminic agent but only p.r.n.. Weight unchanged but at least he has not put on excessive amount. Physically he remains very active. [facility] Medical History ANNE-MARIE (obstructive sleep apnea) Habitual snoring Somnolence, daytime Obesity (BMI 30-39.9) Surgical History H/O colonoscopy Social History Patient Tobacco Use Status: Never used Tobacco Review of Systems Const All systems reviewed & are unremarkable except as noted in HPI and below Reports snoring (Loud and heavy snoring) Eyes Reports no additional complaints ENT Reports no additional complaints Card Denies chest pain, Denies rapid heart rate, Denies irregular heart rhythm and Denies leg edema Resp Denies cough, Denies hemoptysis, Reports snoring (Loud and heavy snoring) and Denies wheezing GI Reports no additional complaints Reports no additional complaints Musc Reports no additional complaints Skin/Breast Reports system reviewed and no additional complaints, except as documented Neuro Reports no additional complaints Psych Reports no additional complaints Endo Reports no additional complaints Guanako/Lymph Reports no additional complaints Aller/Immun Denies wheezing Physical Exam Vital Signs: Last Vital Signs Pulse 63 01/15/25 10:04 BP 120/70 01/15/25 10:04 Pulse Ox 95 01/15/25 10:04 Oxygen Delivery Method Room Air 01/15/25 10:04 BMI result Body Mass Index 33.7 Const Other: He does have a round face, there is mild regression of his chin . Oropharynx is narrow and crowded, Mallampati class 4 General: healthy appearing, comfortable, no acute distress, alert and awake Orientation/consciousness: patient oriented x3 HEENT Head: Yes normal to inspection General nose exam: No nasal polyps present and No nasal discharge present Face and sinus: Yes sinuses nontender Mouth: oropharynx abnormals (Tongue is placed back, oropharynx is narrow and crowded, Mallampati class 4) Throat: Yes posterior oropharynx normal Eyes General: appearance normal, both eyes and all related structures Neck Neck: Yes normal visual inspection, Yes no lymphadenopathy, Yes trachea midline, Yes no JVD and Yes other (Neck size 16-1/2 inch) Thyroid: Thyroid normal Chest Chest palpation & inspection: normal inspection of the chest, normal palpation of entire chest wall and no tenderness Resp Effort & Inspection: normal respiratory effort Auscultation: clear to auscultation bilaterally, no crackles and no wheezes Cardio Palpation: normal PMI Rate: regular rate Rhythm: regular rhythm Heart sounds: no gallops and no murmurs Peripheral pulses: Peripheral pulses 2+ throughout GI Palpation (GI): Soft to palpation, nontender, No hepatosplenomegaly present and no masses Auscultation: normal bowel sounds Back/Spine/Pelvis Thoracic/Lumbar Spine: thoracic and lumbar spine normal to inspection Skin General skin exam: no rashes or lesions noted Neuro General: patient oriented x3 and no focal motor deficits Cranial nerves: Yes CN's II-XII intact bilaterally Extrem General: Yes normal to inspection, Yes no clubbing, cyanosis or edema and Yes no calf tenderness Psych Appearance: grossly normal and well kempt Speech and movement: Normal speech and movement present Results Reviewed Results Reviewed: Compliance report is reviewed and he has used 29/30 nights, 97%. Of the nights average usage 9 hours 2 minutes. There is not much air leak. Residual AHI 2.0 Assessment & Plan Assessment & Plan (1) ANNE-MARIE (obstructive sleep apnea): Comment: HE HAS MODERATELY SEVERE SLEEP APNEA WITH TOTAL SLEEP TIME AHI 18.6 AND SNORING FOR 20% OF SLEEP TIME. PATIENT HAS BEEN ON CPAP THERAPY AND HE IS USING IT VERY REGULARLY. HE REPORTS SIGNIFICANT IMPROVEMENT IN HIS SLEEP, AND HAS NO MORE SNORING. COMPLIANCE IS GOOD. Code(s): G47.33 - Obstructive sleep apnea (adult) (pediatric) Category: Medical Plan: Commended for good compliance and advised to continue using the CPAP regularly (2) Obesity (BMI 30-39.9): Comment: HE IS MODERATELY OBESE , PREDOMINANTLY ABDOMINAL OBESITY. HIS WEIGHT IS REMAINING ON CHANGED . Code(s): E66.9 - Obesity, unspecified Category: Medical Plan: TALKED ABOUT THE WEIGHT DIET AND NEED TO DO DAILY EXERCISE. Coding Level of Care Code Est Pt Level 3 (21884) Diagnoses ANNE-MARIE (obstructive sleep apnea) G47.33 Obesity (BMI 30-39.9) E66.9
[2025-01-15 10:04] VITALS: BP 120/70; PULSE 63; O2SAT 95; BMI 33.7
--- OUTSIDE RECORDS SUMMARY | 2025-01-15 10:50 | XMS_ITS | Patient Health Record ---
Author Organization [facility] Address [address] [place] [address] Care Team Providers Care Water Engineer Name Role Phone Topher Bustos MD Primary Care Provider Jarrod Serna Unavailable [phone] Allergies Allergen (clinical drug ingredient) Drug/Non Drug Allergy documented on EMR Reaction Allergy Type Onset Date Status animal hair (uncoded) Unknown Allergy Active Reason For Referral No Information Medications Medication SIG (Take, Route, Frequency, Duration) Notes Start Date End Date Status Atorvastatin Calcium 10 MG Oral for 30 Active Immunizations Vaccine Route Administration Date Status Comme nts Influenza Unknown 07/14/2023 Refused Social History Tobacco Use: Social History Observation Description Date Details (start date - stop date) Never Smoker NA - NA Tobacco Use/Smoking Question Answer Notes Patient is [...] monthly (1 point) Points 5 Interpretation Positive Section Notes: Nonsmoker; no sig alcohol Problems Problem Type SNOMED Code ICD Code Onset Dates Problem Status W/U Status Risk Notes Problem 211989050 Colon cancer screening (Z12.11) Active confirmed Problem Diverticular disease of colon (948309246) Diverticulosis of large intestine without perforation or abscess without bleeding (K57.30) Active confirmed Problem 959215321196102 Preprocedural examination (Z01.818) Active confirmed Problem 193715075 History of colon polyps (Z86.010) Active confirmed Plan Of Treatment Future Test Test Name Order Date COLONOSCOPY 07/14/2023 Insurance Providers Payer Name Payer Address Payer Phone Subscriber Number Group Number Insured Name Patient Relationship to Insured Coverage Start Date Coverage End Date MEDICARE OF [place] [address] [place] [address] [phone] [id number] DA MCDONALD Self - patient is the insured [facility] [address] [place] [phone] [id number] DA MCDONALD Self - patient is the insured Medical (General) History Medical History History ICD Code Denies CO,DM,CVA,Lung disease,renal dise ase Hyperlipidemia 2 previous colonoscopies, mo st recently as of 2016--the 2nd had a polyp removed-Dr. Louie Surgical History Surgery Date(Month/Year)
== END 2025-01-15 10:40 | disposition home or self-care (01) ==
LOC: HO.HPS 09:50
PROVIDERS: PCP Internal Medicine; Visit Provider Internal Medicine
DX: G47.33 Obstructive sleep apnea (adult) (pediatric) (principal); E66.9 Obesity, unspecified
CPT/HCPCS: 99213

== ENCOUNTER → 2025-01-15 09:50 | Outpatient (BNVA) | payer OTHER, SELFPAY | PROVIDERS: PCP Internal Medicine; Visit Provider Internal Medicine ==

== ENCOUNTER 2025-02-06 07:30 | Outpatient (REF) | payer OTHER, MEDICARE, SELFPAY ==
--- OUTSIDE RECORDS SUMMARY | 2025-02-06 07:34 | XMS_ITS | Patient Health Record ---
Author Organization [facility] Address [address] [place] [address] Care Team Providers Care Semiautomatic Taper Operator Name Role Phone Topher Bustos MD Primary Care Provider Jarrod Serna Unavailable [phone] Allergies Allergen (clinical drug ingredient) Drug/Non Drug [...] Problem Status W/U Status Risk Notes Problem 982503459 Colon cancer screening (Z12.11) Active confirmed Problem Diverticulosis o f large intestine without perforation or abscess without bleeding (K57.30) Active confirmed Problem 435242448845481 Preprocedural examination (Z01.818) Active confirmed Problem 847322494 History of colon polyps (Z86.010) Active confirmed Plan Of Treatment Future Test Test Name Order Date COLONOSCOPY 07/14/2023 Insurance Providers Payer Name Payer Address Payer Phone Subscriber Number Group Number Insured Name Patient Relationship to Insured Coverage Start Date Coverage End Date MEDICARE OF [place] [address] [place] [id number] SUMMERDA Ervin Self - patient is the insured [facility] [address] [place] [phone] [id number] SUMMERDA Ervin Self - patient is the insured Medical (General) History Medical History History ICD Code Denies ID,DM,CVA,Lung disease,renal dise ase Hyperlipidemia 2 previous colonoscopies, mo st recently as of 2016--the 2nd had a polyp removed-Dr. Loiue Surgical History Surgery Date(Month/Year)
--- OUTSIDE RECORDS SUMMARY | 2025-02-06 07:34 | XMS_ITS | Patient Health Record ---
Author Organization [facility] Address [address] [address] Care Team Providers Care Client Service Consultant Name Role Phone Topher Bustos MD Primary Care Provider Nato Wang Unavailable [phone] Reason For Referral No Information Medications Medication SIG (Take, Route, Frequency, Duration) Notes Start Date End Date Status Atorvastatin Calcium 10 MG 1 tablet Oral ly Once a day; Duration: 30 day(s) Active Night Splint AFO - L1930 as directed 10/30/2019 Active Physical Therapy . . . 2-3x/week; Durat ion: 3-4 weeks 10/30/2019 Active Social History Tobacco Use: Social History Observation Description Date Details (start date - stop date) Never Smoker NA - NA Tobacco Use/Smoking Question Answer Notes Are you a: nonsmoker Alcohol Screen Question Answer Notes Did you have a drink containing alcohol in the p ast year? Yes Points 0 Interpretation Negative Plan Of Treatment Pending Test Test Name Order Date X ray : Foot, left 3V 10/30/2019 Insurance Providers Payer Name Payer Address Payer Phone Subscriber Number Group Number Insured Name Patient Relationship to Insured Coverage Start Date Coverage End Date [facility] [address] [facility] [address] [phone] [id number] Adarsh Smith Self - patient is the insured Medical (General) History Surgical History Surgery Date(Month/Year)
[2025-02-06 07:48] LABS: Hematocrit 44.9 % (42.0-52.0); Hemoglobin 15.3 g/dl (14.0-18.0); Mean Corpuscular HGB Conc 34.1 g/dl (31.0-36.0); Mean Corpuscular Hemoglobin 29.9 pg (27.0-33.0); Mean Corpuscular Volume 87.7 fL (80.0-98.0); NRBC Abs Auto 0.000 X10*3/uL (0.0-0.012); NRBC Pct Auto 0.0 /100WBC (0.0-0.2); Platelet Count 216 X10*3/uL (160-400); Red Blood Count 5.12 X10*6/uL (4.60-5.80); White Blood Count 7.0 X10*3/uL (4.8-10.8)
[2025-02-06 08:36] LABS: Alanine Aminotransferase 64 U/L (0-40); Albumin Level 4.6 g/dL (3.5-5.0); Alkaline Phosphatase 82 U/L (39-117); Anion Gap 11 (12-20); Aspartate Amino Transferase 39 U/L (5-37); Blood Urea Nitrogen 13 mg/dL (9-16); Calcium 8.7 mg/dL (8.4-10.2); Carbon Dioxide 28 mmol/L (22-29); Chloride 106 mmol/L (96-108); Cholesterol 102 mg/dL (<200); Estimated Glomerular Filt Rate > 60; HDL Cholesterol 23 mg/dL (>40); Potassium 4.0 mmol/L (3.3-5.1); Sodium 141 mmol/L (135-145); Total Protein 6.8 g/dL (6.5-8.0); Triglycerides 165 mg/dL (<150)
[2025-02-06 08:54] LABS: Thyroid Stimulating Hormone 1.82 uIU/mL (0.32-4.0)
== END 2025-02-06 07:31 | disposition home or self-care (01) ==
LOC: HO.LAB 07:30
PROVIDERS: Visit Provider Internal Medicine
DX: E78.5 Hyperlipidemia, unspecified (principal)
CPT/HCPCS: 36415; 80048; 80061; 80076; 84153; 84443; 85027

== ENCOUNTER 2025-03-26 13:02 | Outpatient (AMB) | payer MEDICARE, OTHER, SELFPAY ==
--- OUTSIDE RECORDS SUMMARY | 2023-10-13 08:10 | XMS_ITS ---
Author Organization [facility] Address [address] [place] [address] Care Team Providers Care Extruder Operator Multiple Name Role Phone Juli (RETIRED) Topher MAHONEY Primary Care Provide Jarrod Stephen Unavailable [phone] REASON FOR VISIT screening,hx polyps Problems Problem Type SNOMED Code ICD Code Onset Dates Problem Status W/U Status Risk Notes Problem Diverticulosis o f large intestine without perforation or abscess without bleeding (K57.30) Active confirmed Encounters Encounter Location Date Provider Diagnosis [facility] Outpatient [address] [place] [address] [phone] 10/13/2023 Jarrod Hernandez Encounter for scre ening colonoscopy Z12.11 ; Colon polyps K63.5 ; Diverticulosis of large intestine without perforation or abscess without bleeding K57.30 and Other hemorrhoids K64.8 Assessments Encounter Date Diagnosis (ICD Code) Assessment Notes Treatment Notes Treatment Clinical Notes Section Notes 10/13/2023 Encounter for screening colonoscopy (ICD-10 - Z12.11) 10/13/2023 Colon polyps (ICD-10 - K63.5) 10/13/2023 Diverticulosis of large intestine without perforation or abscess without bleeding (ICD-10 - K57.30) 10/13/2023 Other hemorrhoids (ICD-10 - K64.8) Plan Of Treatment No Information Progress Notes * DA MCDONALDDOB:1960 (64 yo M)Acc No.[id number]:10/13/2023 COLON WITH MAC Patient: DA VILLALBA Provider: Brandee Hernandez MD :1960 A ge:63 Y S ex:Male Date:10/13/2023 Address:[address] [place] [address] [address], [address] [id number] Pcp:Topher Bustos (RETIRED )MD Subjective: * Chief Complaints: * 1 . Screening,hx polyps. * Medical History: Objective: * Vitals: Assessment: * Assessment: 1. E ncounter for screening colonoscopy - Z12.11 (Primary) 2 . C olon polyps - K63.5 3 . D iverticulosis of large intestine without perforation or abscess without bleeding - K57.30 4 . O ther hemorrhoids - K64.8 Plan: * Treatment: * Procedure Codes: 4 5385 LESION REMOVAL COLONOSCOPY, Modifiers: 33 * * The named appointment provid er may or may not be the originator of this progress note, and it is not deemed complete until electronically signed by the appointment provider. Sign off status: Pending * Provider: Brandee Hernandez MD Date: 0 10/13/2023 Generated for Todd mccray/Alpa/Yareditting on: 0 03/26/2025 02:22 PM EDT
[2025-03-26 13:01] VITALS: BP 140/72; PULSE 68; RESP 14; TEMP 37.1; O2SAT 96; BMI 33.0
--- NOTE | 2025-03-26 13:01 | A.OFFPC_ITS ---
Vital Signs 03/26/25 13:01 03/26/25 13:25 Height 5 ft 8 in Weight 98.43 kg BMI 33.0 BP 140/72 H 128/80 Blood Pressure Location Rt brachial Position Sitting Respiration 14 Pulse 68 Pulse Source Pulse Oximeter Temp 98.7 F Temp Source Temporal Artery Scan Pulse Oximetry (%) 96 Oxygen Delivery Method Room Air Intake Visit Reasons: Annual / Dr Bustos Fishing Boat Captain Required: No Accompanied by: Self / Same As Patient Allergies animal dander (ANIMAL HAIR) Adverse Reaction (Intermediate, Verified 03/26/25 13:01) SNEEZING, ETC. animal dander Allergy (Unknown, Uncoded 01/15/25 10:06) Difficulty Breathing animal hair (dog) Allergy (Unknown, Uncoded 01/15/25 10:06) Difficulty Breathing Medication List - Last Reconciled 03/26/25 by MARLY Humphreys atorvastatin 10 mg PO BEDTIME Tobacco use date assessed: 03/26/25 Fall risk assessment: No Falls in past year Last assessed Fall Risk: 03/26/25 Dental Screening Dental Screen Date: 03/26/25 Did you have a dental visit in the last 12 months?: Yes Did you have a dental problem in the last 6 months where you did not have access to dental care?: No HPI HPI Comments History of Present Illness Details 64-year-old male with history of hyperli pidemia, ANNE-MARIE presents to the office today for management of chronic conditions, to establish care, and for annual physical exam. Currently lives by himself and feels safe. Happily retired. Previously employed as a traffic police officer. Occ alcoohol use- once or twice weekly. Has never smoked cigarettes. No drugs including marijuana. Follows a healthy diet and walks 4-5 miles daily. ANNE-MARIE- compliant with cpap Hyperlipidemia- last LDL 46, triglycerides 165. Compliant with atorvastatin 10mg. Concerns: None Health maintenance: Last screening colonoscopy 10/2023 with 5 year follow-up advised due to tubular adenoma. Dr. Hernandez PSA up-to-date Eye exam- goes annually Dental exam- twice yearly ROS: General: No fevers, malaise, unintentional weight loss HEENT: No blurred vision, diplopia. No sore throat, nasal congestion, rhinorrhea, sinus pain, ear pain. No hearing loss Neck - no adenopathy Cardiovascular: No chest pain, palpitations, or leg edema Respiratory: No shortness of breath, wheezing, cough GI: No dysphagia, odynophagia, globus sensation. No abdominal pain, nausea, vomiting, diarrhea, constipation, melena, hematochezia : No dysuria, hematuria, increased urinary frequency, decreased urinary output. No testicular swelling or pain. No penile discharge MSK: No myalgia, back pain, arthralgias Neuro: No headaches, weakness, paresthesias Psych: no depression/anxiery. No AH/VH. No SI/HI Skin: No rashes or lesions EXAM: Constitutional - Awake and Alert, No apparent distress Eyes - PERRLA, EOMI. Anicteric Ears - external ears normal, canals clear, TMs intact and pearly duke with good cone of light Nose- septum midline, nares clear, no sinus tenderness Mouth/throat- mucosa moist, tongue and uvula midline, no erythema/edema or tonsillar adenopathy. Neck-trachea midline, thyroid symmetric without palpable nodules, no adenopathy Cardiovascular - S1S2, RRR, No edema Respiratory - Normal lung expansion, Normal respiratory effort, No respiratory distress, CTA bilaterally Gastrointestinal - NT / ND; +BS; No rebound or guarding - No CVA tenderness Extremities - no calf tenderness bilaterally, no swelling Musculoskeletal - Normal inspection, normal ROM Skin - Warm/Dry, no concerning lesions Neurological - Alert & oriented x3, CN II-XII in tact, 5/5 strength BUE and BLE, 2+ patellar reflexes, sensation intact Psychological - Appropriate affect PFSH Medical History Hyperlipidemia ANNE-MARIE (obstructive sleep apnea) Habitual snoring Somnolence, daytime Obesity (BMI 30-39.9) Surgical History H/O colonoscopy (~10/13/23) Family History Mother Myocardial infarct Father Myocardial infarct Family/Other Diabetes Brother Stroke Social History Housing: House Patient Tobacco Use Status: Never used Tobacco e-Cigarette/Vaping Use: Never Used service: No Cognitive needs: No Hearing needs: No Vision needs: No Questionnaire PHQ-9 Over the last 2 weeks, how often have you been bothered by any of the following problems? 1. Little interest or pleasure in doing things: not at all 2. Feeling down, depressed, or hopeless: not at all 3. Trouble falling or staying asleep, or sleeping too much: not at all 4. Feeling tired or having little energy: not at all 5. Poor appetite or overeating: not at all 6. Feeling bad about yourself - or that you are a failure or have let yourself or your family down: not at all 7. Trouble concentrating on things, such as reading the newspaper or watching television: not at all 8. Moving or speaking so slowly that other people could have noticed. Or the opposite - being so fidgety or restless that you have been moving around a lot more than usual: not at all 9. Thoughts that you would be better off or of hurting yourself in some way: not at all Total score: 0 Depression Screening Interpretation: Negative Depression Screening Done: Yes 81325 - PHQ-9 Billing: Yes Source: Developed by Drs. Jarrod Ortiz, Sarah Glynn, Khadar José and colleagues, with an educational mireille from [employer]. Thrive Questionnaire Date Thrive assessed: 03/26/25 I am a: Patient Within the past 12 months, did the food you bought not last and you didn't have the money to get more?: Never true Within the past 12 months, did you worry whether your food would run out before you got money to buy more?: Never true Do you have trouble paying for medicines?: No Do you have trouble getting transportation to medical appointments?: No Do you have trouble paying your heating and electricity bill?: No Do you have trouble taking care of your child, family member or friend?: No Do you have trouble with day-to-day activities such as bathing, preparing meals, shopping, managing finances, etc.?: No Are you currently unemployed and looking for a job?: No Are you interested in more education?: No THRIVE Score: 0 AUDIT C Alcohol Use Questionnaire (AUDIT-C) 1. How often do you have a drink containing alcohol?: Never 3. How often do you have six or more drinks on one occasion?: Never Total Score: 0 IVAN-7 AMB Questionnaire IVAN-7 Date IVAN - 7 assessed: 03/26/25 Feeling nervous, anxious, or on edge: 0 = Not at all Not being able to stop or control worryin = Not at all Worrying too much about different things: 0 = Not at all Trouble relaxin = Not at all Being so restless that it is hard to sit still: 0 = Not at all Becoming easily annoyed or irritable: 0 = Not at all Feeling afraid as if something awful might happen: 0 = Not at all Total IVAN-7 score (0-4 normal; 5-9 mild; 10-14 moderate; 15-21 severe): 0 Source: Developed by Drs. Jarrod Ortiz, Sarah Glynn, Khadar José and colleagues, with an educational mireille from [employer]. IVAN-7 Assessment Billing IVAN-7 Assessment Tool: IVAN-7 Assessment 57449 Physical exam (Primary Care) BMI result Body Mass Index 33.0 Tobacco/Smoking Status: Tobacco use Status Tobacco use date assessed 03/26/25 03/26/25 13:02 Patient Tobacco Use Status Never used Tobacco 03/26/25 13:02 e-Cigarette/Vaping Use Never Used 03/26/25 13:02 PHQ-9: PHQ-9 Score PHQ-9: Total score 0 03/26/25 13:02 Depression Screening Interpretation: Negative Thrive Assessment: Date of Thrive Assessment Date Thrive assessed 03/26/25 03/26/25 13:02 Coding Level of Care Code New Pt Prev Care >65yr (22242) Diagnoses Routine medical exam Z00.00 Hyperlipidemia E78.5 ANNE-MARIE (obstructive sleep apnea) G47.33 Obesity (BMI 30-39.9) E66.9 Additional Codes PHQ-9 - 31141 - PHQ-9 Billing: Yes ([id number]) IVAN-7 Assessment Billing - IVAN-7 Assessment Tool: IVAN-7 Assessment 75608 ([id number]) Assessment & Plan Assessment & Plan (1) Routine medical exam: Code(s): Z00.00 - Encounter for general adult medical examination without abnormal findings Plan: Plan as below (2) Hyperlipidemia: Code(s): E78.5 - Hyperlipidemia, unspecified Category: Medical Plan: At goal. Continue atorvastatin (3) ANNE-MARIE (obstructive sleep apnea): Comment: HE HAS MODERATELY SEVERE SLEEP APNEA WITH TOTAL SLEEP TIME AHI 18.6 AND SNORING FOR 20% OF SLEEP TIME. PATIENT HAS BEEN ON CPAP THERAPY AND HE IS USING IT VERY REGULARLY. HE REPORTS SIGNIFICANT IMPROVEMENT IN HIS SLEEP, AND HAS NO MORE SNORING. COMPLIANCE IS GOOD. Code(s): G47.33 - Obstructive sleep apnea (adult) (pediatric) Category: Medical Plan: Continue with cpap compliance (4) Obesity (BMI 30-39.9): Comment: HE IS MODERATELY OBESE , PREDOMINANTLY ABDOMINAL OBESITY. HIS WEIGHT IS REMAINING ON CHANGED . Code(s): E66.9 - Obesity, unspecified Category: Medical Plan: Commended on weight loss efforts. Advised to continue with exercise routine, but add in some resistance/weight training. Healthy diet focusing on protein, fruits, vegetables and limiting refined sugars and simple carbohydrates and highly processed foods. Plan Routine screening labs as ordered below Continue with screening colonoscopies and PSA Continue following for annual skin exams and use sun protection Annual eye exams, dentist twice yearly Wear seat belt in car Recommend regular exercise and healthy diet Follow up in 1 year
[2025-03-26 13:25] VITALS: BP 128/80
--- OUTSIDE RECORDS SUMMARY | 2025-03-26 14:22 | XMS_ITS | Patient Health Record ---
Author Organization [facility] Address [address] [place] [address] Care Team Providers Care Wool Dyer Name Role Phone Juli (RETIRED) Topher MAHONEY Primary Care Provide r Jarrod Rincon Unavailable [phone] Allergies Allergen (clinical drug ingredient) Drug/Non Drug [...] Problem Status W/U Status Risk Notes Problem 287281876 Colon cancer screening (Z12.11) Active confirmed Problem Diverticulosis o f large intestine without perforation or abscess without bleeding (K57.30) Active confirmed Problem 971284128815755 Preprocedural examination (Z01.818) Active confirmed Problem 151435581 History of colon polyps (Z86.010) Active confirmed Plan Of Treatment Future Test Test Name Order Date COLONOSCOPY 07/14/2023 Insurance Providers Payer Name Payer Address Payer Phone Subscriber Number Group Number Insured Name Patient Relationship to Insured Coverage Start Date Coverage End Date MEDICARE OF [place] [address] [place] [id number] SUMMERDA Ervin Self - patient is the insured [facility] [address] [place] [address] [phone] [id number] Ervin Self - patient is the insured Medical (General) History Medical History History ICD Code Denies DC,DM,CVA,Lung disease,renal dise ase Hyperlipidemia 2 previous colonoscopies, mo st recently as of 2016--the 2nd had a polyp removed-Dr. Louie Surgical History Surgery Date(Month/Year)
--- OUTSIDE RECORDS SUMMARY | 2025-03-26 14:22 | XMS_ITS | Patient Health Record ---
Author Organization [facility] Address [address] [place] [address] Care Team Providers Care Warehouse Logistics Coordinator Name Role Phone Topher Bustos MD Primary Care Provider Nato Wang Unavailable [phone] Reason For Referral No Information Medications Medication [...] Insured Coverage Start Date Coverage End Date [facility] [address] [facility] [address] [id number] Adarsh Smith Self - patient is the insured Medical (General) History Surgical History Surgery Date(Month/Year)
== END 2025-03-26 13:29 | disposition home or self-care (01) ==
LOC: HO.HMCHD 13:03
PROVIDERS: PCP Internal Medicine; Visit Provider Physician Assistant
DX: Z00.00 Encounter for general adult medical examination without abnormal findings (principal); E78.5 Hyperlipidemia, unspecified; E66.9 Obesity, unspecified; Z68.33 Body mass index [BMI] 33.0-33.9, adult; G47.33 Obstructive sleep apnea (adult) (pediatric)

== ENCOUNTER → 2025-03-26 13:02 | Outpatient (BNVA) | payer MEDICARE, OTHER, SELFPAY | PROVIDERS: PCP Internal Medicine; Visit Provider Physician Assistant | DX: Z00.00 Encounter for general adult medical examination without abnormal findings (principal); E78.5 Hyperlipidemia, unspecified; G47.33 Obstructive sleep apnea (adult) (pediatric); E66.9 Obesity, unspecified; Z68.33 Body mass index [BMI] 33.0-33.9, adult; Z79.899 Other long term (current) drug therapy; Z99.89 Dependence on other enabling machines and devices; Z13.31 Encounter for screening for depression; Z13.39 Encounter for screening examination for other mental health and behavioral disorders | CPT/HCPCS: 96127; 99387 ==

== ENCOUNTER 2025-07-16 09:29 | Outpatient (AMB) | payer MEDICARE, OTHER, SELFPAY ==
--- NOTE | 2025-07-16 09:42 | A.OFFVIS_ITS ---
Vital Signs 07/16/25 09:43 Height 5 ft 8 in Weight 225 lb 15.581 oz BMI 34.4 BP 120/70 Blood Pressure Location Lt brachial Position Sitting Pulse 52 Pulse Source Pulse Oximeter Pulse Oximetry (%) 97 Oxygen Delivery Method Room Air Intake Visit Reasons: anne-marie Intake Note: pt is here for follow up and states he is feeling well, using cpap P10 he has interest in. Moisture Machine Tender Required: No Vice President Of Brand Management: Vice President Of Brand Management offered & declined Allergies animal dander (ANIMAL HAIR) Adverse Reaction (Intermediate, Verified 07/16/25 09:59) SNEEZING, ETC. animal dander Allergy (Unknown, Uncoded 07/16/25 09:59) Difficulty Breathing animal hair (dog) Allergy (Unknown, Uncoded 07/16/25 09:59) Difficulty Breathing Medication List - Last Reconciled 07/16/25 by Dashawn Ghosh MD No Known Home Meds Do you need a note to return to daycare/school/sports/work: No HPI HPI anne-marie: Details: DA IS 65 YEARS OLD GENTLEMAN, RETIRED, GROSSLY OBESE WITH A ROUND FACE AND USES CPAP REGULARLY TO OVERCOME HIS OBSTRUCTIVE SLEEP APNEA HE USES CPAP VERY REGULARLY EVERY NIGHT, BETWEEN 8-9 HOURS PER NIGHT. CURRENTLY USING NASAL MASK AND SOME OF HIS FAMILY MEMBERS WHO ALSO HAVE SLEEP APNEA OR USING NASAL PILLOWS. SO HE IS INTERESTED IN TRYING NASAL PILLOWS. HE HAS NO DAYTIME SLEEPINESS . WEIGHT CONNER THERE HAS BEEN NO PROGRESS HE HAS ACTUALLY GAINED 6 LB OF WEIGHT. HE HAS STARTED GOING TO THE [place] [place]. AND IS TRYING TO WATCH HIS DIET. [facility], [facility] Medical History Hyperlipidemia ANNE-MARIE (obstructive sleep apnea) Habitual snoring Somnolence, daytime Obesity (BMI 30-39.9) Surgical History H/O colonoscopy (~10/13/23) Family History Mother Myocardial infarct Father Myocardial infarct Family/Other Diabetes Brother Stroke Social History Housing: House Patient Tobacco Use Status: Never used Tobacco e-Cigarette/Vaping Use: Never Used service: No Cognitive needs: No Hearing needs: No Vision needs: No Review of Systems Const All systems reviewed & are unremarkable except as noted in HPI and below Reports snoring (Loud and heavy snoring) Eyes Reports no additional complaints ENT Reports no additional complaints Card Denies chest pain, Denies rapid heart rate, Denies irregular heart rhythm and Denies leg edema Resp Denies cough, Denies hemoptysis, Reports snoring (Loud and heavy snoring) and Denies wheezing GI Reports no additional complaints Reports no additional complaints Musc Reports no additional complaints Skin/Breast Reports system reviewed and no additional complaints, except as documented Neuro Reports no additional complaints Psych Reports no additional complaints Endo Reports no additional complaints [place]/Lymph Reports no additional complaints Aller/Immun Denies wheezing Physical Exam Vital Signs: Last Vital Signs Pulse 52 07/16/25 09:43 BP 120/70 07/16/25 09:43 Pulse Ox 97 07/16/25 09:43 Oxygen Delivery Method Room Air 07/16/25 09:43 BMI result Body Mass Index 34.4 Const Other: He does have a round face, there is mild regression of his chin . Oropharynx is narrow and crowded, Mallampati class 4 General: healthy appearing, comfortable, no acute distress, alert and awake Orientation/consciousness: patient oriented x3 HEENT Head: Yes normal to inspection General nose exam: No nasal polyps present and No nasal discharge present Face and sinus: Yes sinuses nontender Mouth: oropharynx abnormals (Tongue is placed back, oropharynx is narrow and crowded, Mallampati class 4) Throat: Yes posterior oropharynx normal Eyes General: appearance normal, both eyes and all related structures Neck Neck: Yes normal visual inspection, Yes no lymphadenopathy, Yes trachea midline, Yes no JVD and Yes other (Neck size 16-1/2 inch) Thyroid: Thyroid normal Chest Chest palpation & inspection: normal inspection of the chest, normal palpation of entire chest wall and no tenderness Resp Effort & Inspection: normal respiratory effort Auscultation: clear to auscultation bilaterally, no crackles and no wheezes Cardio Palpation: normal PMI Rate: regular rate Rhythm: regular rhythm Heart sounds: no gallops and no murmurs Peripheral pulses: Peripheral pulses 2+ throughout GI Palpation (GI): Soft to palpation, nontender, No hepatosplenomegaly present and no masses Auscultation: normal bowel sounds Back/Spine/Pelvis Thoracic/Lumbar Spine: thoracic and lumbar spine normal to inspection Skin General skin exam: no rashes or lesions noted Neuro General: patient oriented x3 and no focal motor deficits Cranial nerves: Yes CN's II-XII intact bilaterally Extrem General: Yes normal to inspection, Yes no clubbing, cyanosis or edema and Yes no calf tenderness Psych Appearance: grossly normal and well kempt Speech and movement: Normal speech and movement present Results Reviewed Results Reviewed: COMPLIANCE REPORT FOR THE LAST 30 NIGHTS REVIEWED AND HE HAS USED 30/30 NIGHTS, 100%. AVERAGE USE IT PER NIGHT 9 HOURS 38 MINUTES. THERE IS ONLY MINIMAL AIR LEAK . RESIDUAL AHI 1.8 Assessment & Plan Assessment & Plan (1) Obesity (BMI 30-39.9): Comment: HE IS MODERATELY OBESE , PREDOMINANTLY ABDOMINAL OBESITY. HIS WEIGHT IS REMAINING UNCHANGED . ACTUALLY GAINED 6 LBS IN LAST 6 MONTHS Code(s): E66.9 - Obesity, unspecified Category: Medical Plan: AT DETAIL TALK ABOUT NEED TO CUT DOWN THE CALORIES INTAKE AND ALSO NEED TO INCREASE THE AMOUNT OF EXERCISE. (2) ANNE-MARIE (obstructive sleep apnea): Comment: HE HAS MODERATELY SEVERE SLEEP APNEA WITH TOTAL SLEEP TIME AHI 18.6 AND SNORING FOR 20% OF SLEEP TIME. PATIENT HAS BEEN ON CPAP THERAPY AND HE IS USING IT VERY REGULARLY. HE REPORTS SIGNIFICANT IMPROVEMENT IN HIS SLEEP, AND HAS NO MORE SNORING. COMPLIANCE IS GOOD. HE IS INTERESTED IN USING NASAL PILLOWS. Code(s): G47.33 - Obstructive sleep apnea (adult) (pediatric) Category: Medical Plan: GAVE HIM A SAMPLE OF NASAL PILLOWS FROM THE OFFICE AND, IF HE BENEFITS FROM IT WE WILL SEND A PRESCRIPTION. DO USE HUMIDIFICATION REGULARLY . Coding Level of Care Code Est Pt Level 3 (55033) Diagnoses Obesity (BMI 30-39.9) E66.9 ANNE-MARIE (obstructive sleep apnea) G47.33
[2025-07-16 09:43] VITALS: BP 120/70; PULSE 52; O2SAT 97; BMI 34.4
== END 2025-07-16 10:09 | disposition home or self-care (01) ==
LOC: HO.HPS 09:29
PROVIDERS: PCP Internal Medicine; Visit Provider Internal Medicine
DX: E66.9 Obesity, unspecified (principal); G47.33 Obstructive sleep apnea (adult) (pediatric)
CPT/HCPCS: 99213

== ENCOUNTER → 2025-07-16 09:29 | Outpatient (BNVA) | payer MEDICARE, OTHER, SELFPAY | PROVIDERS: PCP Internal Medicine; Visit Provider Internal Medicine | DX: E66.9 Obesity, unspecified (principal); G47.33 Obstructive sleep apnea (adult) (pediatric); Z99.89 Dependence on other enabling machines and devices | CPT/HCPCS: 99212 ==